=== PATIENT | male | born 1980 ===

== ENCOUNTER 2021-04-12 16:15 | Day surgery (SDC) | payer BC ==
[2021-04-12] MEDS ORDERED: Sodium Chloride 0.9% 1,000 ML IV ONE (16:56)
[2021-04-12] MEDS ORDERED: Sodium Chloride 0.9% 10 ML Syringe FLUSH PRN ×2 (16:56→19:47)
[2021-04-12] MEDS ORDERED: Morphine 4 MG/ML Syringe IVPUSH ONE (16:56)
[2021-04-12] MEDS ORDERED: Sodium Chloride 0.9% 2.5 ML Syringe FLUSH PRN ×2 (16:56→19:47)
--- NOTE | 2021-04-12 17:02 | EDM.PDOC ---
ED HPI GENERAL MEDICAL PROBLEM - General Chief Complaint: General Stated Complaint: DEL, INFLAMMED STOMACH PAIN Time Seen by Provider: 04/12/21 16:30 Source of Information: Reports: Patient History Limitations: Reports: No Limitations - History of Present Illness INITIAL COMMENTS - FREE TEXT/NARRATIVE: HISTORY AND PHYSICAL: History of present illness: Patient is a 40-year-old male who presents to the emergency room with complaints of nausea, vomiting, diarrhea and generalized abdominal pain. Patient reports he has had Crohn's disease for approximately 15 years which is controlled with prescribed medication and recent diet change. He previously had eliminated sugars, carbs and dairy from his diet. He states over the past few weeks he has had birthdays and has not been following his regular diet. He has noticed generalized abdominal pain, nausea, vomiting and mucousy type diarrhea over the past several days. About 1-2 hours prior to arrival he has had an oral P henergan which seems to help with the nausea. Patient denies any fever, chills, headache, change in vision, syncope or near syncope. Denies any chest pain, back pain, shortness of breath or cough. Denies any constipation or dysuria. Has not noted any blood in urine or stool. Patient had been eating and drinking appropriately up until the last 24 hours. Review of systems: As per history of present illness and below otherwise all systems reviewed and negative. Past medical history: As per history of present illness and as reviewed below otherwise noncontributory. Surgical history: As per history of present illness and as reviewed below otherwise noncontributory. Social history: See social history for further information Family history: As per history of present illness and as reviewed below otherwise noncontributory. Physical exam: General: Well developed and well nourished 40 year old male. Alert and orientated x 3. Nontoxic in appearance and in no acute distress. Vital signs are stable and have been reviewed by me. Nursing notes were reviewed. HEENT: Atraumatic, normocephalic, pupils equal and reactive bilaterally, negative for conjunctival pallor or scleral icterus, mucous membranes moist, TMs normal bilaterally, throat clear, neck supple, nontender, trachea midline. No drooling or trismus noted. No meningeal signs. No hot potato voice noted. Lungs: Clear to auscultation bilaterally. No wheezes, rales, or rhonchi. Chest nontender. Normal work of breathing, no accessory muscles used. Heart: S1S2, regular rate and rhythm without overt murmur, gallops, or rubs. No JVD. No peripheral edema Abdomen: Soft, nondistended, generalized abdominal pain in all 4 quadrants. Mild RLQ rebound tenderness. Normoactive bowel sounds. Negative for masses or costovertebral tenderness. Skin: Intact, warm, dry. No lesions or rashes noted. Hematologic: No petechiae or purpra. Mucosa appropriate color and normal nail bed color and refill. Extremities: Atraumatic, moves all extremities per self without difficulty or deficits, negative for cords or calf pain. Neurovascular unremarkable. Neuro: Awake, alert, oriented. Cranial nerves II through XII unremarkable. Cerebellum unremarkable. Motor and sensory unremarkable throughout. Exam nonfocal. Psychiatric: Mood and affect are appropriate. Normal thought process. Answering questions appropriately. Notes: *This patient was seen and evaluated during the 2019 SARS-CoV-2 novel coronavirus pandemic period. Community viral transmission is ongoing at time of this encounter and the emergency department is operating under pandemic response procedures. Patient does have an elevated WBC. CT of abdomen/pelvis shows the appendix measures 1.2 cm in diameter. Minimal periappendiceal fat stranding. Findings are highly concerning for acute appendicitis. I have talked with the patient about today's findings, in addition to providing specific details for plan of care. Reassessment at the time of disposition demonstrates that the patient is in no acute distress. Well managed with the Dilaudid he received. I did talk with Dr. Dudley, surgeon on-call about this patient, she will come and see and evaluate patient. 1915: Dr Dudley here to see patient. Plans to take him to the OR. Diagnostics: CBC, CMP, UA, CT abdomen and pelvis Therapeutics: IV fluid, morphine Impression: History of Crohns Disease Appendicitis Plan: To OR with Dr. Dudley Definitive disposition and diagnosis as appropriate pending reevaluation and review of above. Abdominal Pain Score (Numeric/FACES): 8 - Related Data Allergies Allergy/AdvReac Type Severity Reaction Status Date / Time No Known Allergies Allergy Verified 04/12/21 16:51 Home Meds: Home Meds azaTHIOprine [Azathioprine] mg PO BEDTIME 04/12/21 [History] Past Medical History Other Gastrointestinal History: Chrons - Infectious Disease History Infectious Disease History: Reports: Chicken Pox Social & Family History - Family History Family Medical History: No Pertinent Family History - Tobacco Use Tobacco Use Status *Q: Never Tobacco User - Caffeine Use Caffeine Use: Reports: None - Recreational Drug Use Recreational Drug Use: No ED ROS GENERAL - Review of Systems Review Of Systems: Comprehensive ROS is negative, except as noted in HPI. ED EXAM, GENERAL - Physical Exam Exam: See Below (See dictation) Course - Vital Signs Last Recorded V/S: Last Vital Signs Temp 97.9 F 04/12/21 19:22 Pulse 84 04/12/21 19:22 Resp 18 04/12/21 19:22 BP 118/72 04/12/21 19:22 Pulse Ox 98 04/12/21 19:22 - Orders/Labs/Meds Orders: Active Orders 24 hr Category Date Time Status CORONAVIRUS COVID-19 RAFAEL [MOLEC] Stat Lab 04/12/21 19:17 Received Sodium Chloride 0.9% [Saline Flush] Med 04/12/21 16:56 Active 10 ml FLUSH ASDIRECTED PRN Sodium Chloride 0.9% [Saline Flush] Med 04/12/21 16:56 Active 2.5 ml FLUSH ASDIRECTED PRN Saline Lock Insert [OM.PC] Stat Oth 04/12/21 16:56 Ordered Medication Orders Sodium Chloride (Sodium Chloride 0.9% 10 Ml Syringe) 10 ml FLUSH ASDIRECTED PRN PRN Reason: Keep Vein Open Last Admin: 04/12/21 17:08 Dose: 10 ml Documented by: [id number] Sodium Chloride (Sodium Chloride 0.9% 2.5 Ml Syringe) 2.5 ml FLUSH ASDIRECTED PRN PRN Reason: Keep Vein Open Last Admin: 04/12/21 17:08 Dose: 2.5 ml Documented by: [id number] Labs: Laboratory Tests 04/12/21 04/12/21 04/12/21 Range/Units 17:02 17:02 17:57 WBC 11.24 H (4.0-11.0) K/uL RBC 4.71 (4.50-5.90) M/uL Hgb 15.3 (13.0-17.0) g/dL Hct 43.2 (38.0-50.0) % MCV 91.7 (80.0-98.0) fL MCH 32.5 H (27.0-32.0) pg MCHC 35.4 (31.0-37.0) g/dL RDW Std Deviation 43.6 (28.0-62.0) fl RDW Coeff of Krzysztof 13 (11.0-15.0) % Plt Count 205 (150-400) K/uL MPV 10.30 (7.40-12.00) fL Neut % (Auto) 93.3 H (48.0-80.0) % Lymph % (Auto) 3.6 L (16.0-40.0) % [place] % (Auto) 2.8 (0.0-15.0) % Eos % (Auto) 0.1 (0.0-7.0) % Baso % (Auto) 0.2 (0.0-1.5) % Neut # (Auto) 10.5 H (1.4-5.7) K/uL Lymph # (Auto) 0.4 L (0.6-2.4) K/uL [place] # (Auto) 0.3 (0.0-0.8) K/uL Eos # (Auto) 0.0 (0.0-0.7) K/uL Baso # (Auto) 0.0 (0.0-0.1) K/uL Nucleated RBC % 0.0 /100WBC Nucleated RBCs # 0 K/uL Sodium 141 (136-148) mmol/L Potassium 3.8 (3.5-5.1) mmol/L Chloride 101 (98-107) mmol/L Carbon Dioxide 26.1 (21.0-32.0) mmol/L BUN 13 (7.0-18.0) mg/dL Creatinine 1.0 (0.8-1.3) mg/dL Est Cr Clr Drug Dosing 113.03 mL/min Estimated GFR (MDRD) > 60.0 ml/min Glucose 129 H (74-106) mg/dL Calcium 9.7 (8.5-10.1) mg/dL Total Bilirubin 0.4 (0.2-1.0) mg/dL AST 29 (15-37) IU/L ALT 54 (14-63) IU/L Alkaline Phosphatase 66 (46-116) U/L Total Protein 7.9 (6.4-8.2) g/dL Albumin 4.4 (3.4-5.0) g/dL Globulin 3.5 (2.6-4.0) g/dL Albumin/Globulin Ratio 1.3 (0.9-1.6) Urine Color YELLOW Urine Appearance CLEAR Urine pH 8.5 H (5.0-8.0) Ur Specific [place] 1.020 (1.001-1.035) Urine Protein 100 H (NEGATIVE) mg/dL Urine Glucose (UA) NEGATIVE (NEGATIVE) mg/dL Urine Ketones NEGATIVE (NEGATIVE) mg/dL Urine Occult Blood NEGATIVE (NEGATIVE) Urine Nitrite NEGATIVE (NEGATIVE) Urine Bilirubin NEGATIVE (NEGATIVE) Urine Urobilinogen 0.2 (<2.0) EU/dL Ur Leukocyte Esterase NEGATIVE (NEGATIVE) Urine RBC 0-3 (0-2/HPF) Urine WBC 0-2 (0-5/HPF) Ur Epithelial Cells OCCASIONAL (NONE-FEW) Urine Bacteria RARE (NEGATIVE) Urine Mucus LIGHT (NONE-MOD) Meds: Medications Generic Name Dose Route Start Last Admin Trade Name Yaniv PRN Reason Stop Dose Admin Sodium Chloride 10 ml 04/12/21 16:56 04/12/21 17:08 Sodium Chloride 0.9% 10 Ml Syringe FLUSH 10 ml ASDIRECTED PRN Administration Keep Vein Open Sodium Chloride 2.5 ml 04/12/21 16:56 04/12/21 17:08 Sodium Chloride 0.9% 2.5 Ml Syringe FLUSH 2.5 ml ASDIRECTED PRN Administration Keep Vein Open Discontinued Medications Generic Name Dose Route Start Last Admin Trade Name Yaniv PRN Reason Stop Dose Admin Hydromorphone HCl 1 mg 04/12/21 18:15 04/12/21 18:46 Hydromorphone 1 Mg/Ml Syringe IVPUSH 04/12/21 18:16 1 mg ONETIME ONE Administration Sodium Chloride 1,000 mls @ 999 mls/hr 04/12/21 16:56 04/12/21 17:08 Normal Saline IV 04/12/21 17:56 999 mls/hr STAT ONE Administration Iopamidol 100 ml 04/12/21 18:24 04/12/21 18:25 Iopamidol 755 Mg/Ml 500 Ml Multipack Bottle IVPUSH 04/12/21 18:25 100 ml ONETIME STA Administration Morphine Sulfate 4 mg 04/12/21 16:56 04/12/21 17:08 Morphine 4 Mg/Ml Syringe IVPUSH 04/12/21 16:57 4 mg ONETIME ONE Administration Departure - Departure Time of Disposition: 19:36 Disposition: Still A Patient 30 Clinical Impression: Appendicitis Qualifiers: Appendicitis type: acute appendicitis Acute appendicitis type: with localized peritonitis Appendicitis gangrene presence: without gangrene Appendicitis perforation presence: without perforation Appendicitis abscess presence: without abscess Qualified Code(s): K35.30 - Acute appendicitis with localized peritonitis, without perforation or gangrene - Discharge Information Referrals: Christ Guadalupe MD [Primary Care Provider] - Forms: ED Department Discharge Sepsis Event Note (ED) - Evaluation Sepsis Screening Result: No Definite Risk - Focused Exam Vital Signs: Vital Signs Temp Pulse Resp BP Pulse Ox 04/12/21 19:22 97.9 F 84 18 118/72 98 04/12/21 18:47 98.2 F 78 20 128/87 98 04/12/21 17:55 98.4 F 84 18 128/72 98 04/12/21 16:44 98.9 F 88 18 149/94 H 97 - My Orders Last 24 Hours: My Active Orders 04/12/21 16:56 Sodium Chloride 0.9% [Saline Flush] 10 ml FLUSH ASDIRECTED PRN Sodium Chloride 0.9% [Saline Flush] 2.5 ml FLUSH ASDIRECTED PRN Saline Lock Insert [OM.PC] Stat 04/12/21 19:17 CORONAVIRUS COVID-19 RAFAEL [MOLEC] Stat - Assessment/Plan Last 24 Hours: My Active Orders 04/12/21 16:56 Sodium Chloride 0.9% [Saline Flush] 10 ml FLUSH ASDIRECTED PRN Sodium Chloride 0.9% [Saline Flush] 2.5 ml FLUSH ASDIRECTED PRN Saline Lock Insert [OM.PC] Stat 04/12/21 19:17 CORONAVIRUS COVID-19 RAFAEL [MOLEC] Stat
[2021-04-12 17:41] LABS: BLOOD UREA NITROGEN,BUN 13 mg/dL (7.0-18.0); CARBON DIOXIDE,CO2 26.1 mmol/L (21.0-32.0); CHLORIDE,CL 101 mmol/L (98-107); GLUCOSE RANDOM 129 mg/dL (74-106); POTASSIUM,K 3.8 mmol/L (3.5-5.1); SODIUM,NA 141 mmol/L (136-148)
[2021-04-12] MEDS ORDERED: HYDROmorphone 1 MG/ML Syringe IVPUSH ONE (18:15)
[2021-04-12] MEDS ORDERED: Iopamidol 755 MG/ML 500 ML Multipack Bottle IVPUSH STA (18:24)
--- NOTE | 2021-04-12 19:06 | CT ---
For Patients: As a result of the Century Cures Act, medical imaging exams and procedure reports are released immediately into your electronic medical record. You may view this report before your referring provider. If you have questions, please contact your health care provider. INDICATION: Abdominal pain, nausea, vomiting, diarrhea, history of Crohn`s disease, leukocytosis TECHNIQUE: CT abdomen and pelvis acquired with 100 cc Isovue 370 IV contrast. COMPARISON: December 16, 2016 FINDINGS: Lower chest: Unremarkable. Liver: Unremarkable. Spleen: Unremarkable. Pancreas: Unremarkable. Gallbladder and bile ducts: Unremarkable. Adrenal glands: Unremarkable. Kidneys: Unremarkable. GI tract: The appendix measures 1.2 cm in diameter. Minimal periappendiceal fat stranding. No extraluminal air or abscess. No bowel wall thickening. Vascular structures: Unremarkable. Lymph nodes: Unremarkable. Pelvic Organs: Unremarkable. Bones: Unremarkable for age. IMPRESSION: The appendix measures 1.2 cm in diameter. Minimal periappendiceal fat stranding. Findings are highly concerning for acute appendicitis. Findings discussed with Dr. Ash at 7:02 p.m. on April 12, 2021. Please note that all CT scans at this facility use dose modulation, iterative reconstruction, and/or weight-based dosing when appropriate to reduce radiation dose to as low as reasonably achievable. Dictated by Bettina Velez MD @ 04/12/2021 7:05:[address] Bettina Velez @ Apr 12 2021 7:05PM
[2021-04-12] MEDS ORDERED: Piperacillin/Tazobactam 3.375 GM in Sodium Chloride 0.9% 50 ML IV ONE (19:37)
--- NOTE | 2021-04-12 19:41 | PCM.HP.2 ---
H&P History of Present Illness - General Date of Service: 04/12/21 Admit Problem/Dx: Appendicitis Source of Information: Patient History Limitations: Reports: No Limitations - History of Present Illness Initial Comments - Free Text/Narative: Patient is a 40 year old male who presents with abdominal pain. His past medical history is significant for very well controlled Crohn's Disease. He has never had surgery for this. He had his last colonoscopy 6 months ago and his GI physician stated that there was no evidence of disease. He celebrated his daughters birthday this weekend with pizza and cake. He developed sharp abdominal pain this afternoon and felt that this could be a flare due to his dietary indiscretion. He developed chills and had nausea and vomiting that he doesn't get with flares so his brought him to the ER. His vitals were stable. His WBC was slightly elevated at 11K with a left shift. He had an abdominal CT scan that showed a dilated appendix at 1.2cm in diameter. There was no bowel wall thickening. The findings were concerning for acute appendicitis. Abdominal Pain Score (Numeric/FACES): 8 - Related Data Allergies/Adverse Reactions: Allergies Allergy/AdvReac Type Severity Reaction Status Date / Time No Known Allergies Allergy Verified 04/12/21 16:51 Home Medications: Home Meds azaTHIOprine [Azathioprine] mg PO BEDTIME 04/12/21 [History] Past Medical History Other Gastrointestinal History: Crohn's Disease - Infectious Disease History Infectious Disease History: Reports: Chicken Pox Social & Family History - Family History Family Medical History: No Pertinent Family History - Tobacco Use Tobacco Use Status *Q: Never Tobacco User - Caffeine Use Caffeine Use: Reports: None - Recreational Drug Use Recreational Drug Use: No H&P Review of Systems - Review of Systems: Review Of Systems: Comprehensive ROS is negative, except as noted in HPI. Exam - Exam Exam: See Below - Vital Signs Vital Signs: Last Vital Signs Temp 36.6 C 04/12/21 19:22 Pulse 84 04/12/21 19:22 Resp 18 04/12/21 19:22 BP 118/72 04/12/21 19:22 Pulse Ox 98 04/12/21 19:22 Weight: 122.47 kg - Exam General: Alert, Oriented, Cooperative HEENT: Conjunctiva Clear, Mucosa Moist & [place], Posterior Pharynx Clear Lungs: Clear to Auscultation, Normal Respiratory Effort Cardiovascular: Regular Rate, Regular Rhythm GI/Abdominal Exam: Soft, No Distention, Rebound (RLQ), Tender (RLQ). No: Guarding, Rigid - Patient Data Lab Results Last 24 hrs: Laboratory Results - last 24 hr 04/12/21 04/12/21 04/12/21 Range/Units 17:02 17:02 17:57 WBC 11.24 H (4.0-11.0) K/uL RBC 4.71 (4.50-5.90) M/uL Hgb 15.3 (13.0-17.0) g/dL Hct 43.2 (38.0-50.0) % MCV 91.7 (80.0-98.0) fL MCH 32.5 H (27.0-32.0) pg MCHC 35.4 (31.0-37.0) g/dL RDW Std Deviation 43.6 (28.0-62.0) fl RDW Coeff of Krzysztof 13 (11.0-15.0) % Plt Count 205 (150-400) K/uL MPV 10.30 (7.40-12.00) fL Neut % (Auto) 93.3 H (48.0-80.0) % Lymph % (Auto) 3.6 L (16.0-40.0) % [place] % (Auto) 2.8 (0.0-15.0) % Eos % (Auto) 0.1 (0.0-7.0) % Baso % (Auto) 0.2 (0.0-1.5) % Neut # (Auto) 10.5 H (1.4-5.7) K/uL Lymph # (Auto) 0.4 L (0.6-2.4) K/uL [place] # (Auto) 0.3 (0.0-0.8) K/uL Eos # (Auto) 0.0 (0.0-0.7) K/uL Baso # (Auto) 0.0 (0.0-0.1) K/uL Nucleated RBC % 0.0 /100WBC Nucleated RBCs # 0 K/uL Sodium 141 (136-148) mmol/L Potassium 3.8 (3.5-5.1) mmol/L Chloride 101 (98-107) mmol/L Carbon Dioxide 26.1 (21.0-32.0) mmol/L BUN 13 (7.0-18.0) mg/dL Creatinine 1.0 (0.8-1.3) mg/dL Est Cr Clr Drug Dosing 113.03 mL/min Estimated GFR (MDRD) > 60.0 ml/min Glucose 129 H (74-106) mg/dL Calcium 9.7 (8.5-10.1) mg/dL Total Bilirubin 0.4 (0.2-1.0) mg/dL AST 29 (15-37) IU/L ALT 54 (14-63) IU/L Alkaline Phosphatase 66 (46-116) U/L Total Protein 7.9 (6.4-8.2) g/dL Albumin 4.4 (3.4-5.0) g/dL Globulin 3.5 (2.6-4.0) g/dL Albumin/Globulin Ratio 1.3 (0.9-1.6) Urine Color YELLOW Urine Appearance CLEAR Urine pH 8.5 H (5.0-8.0) Ur Specific [place] 1.020 (1.001-1.035) Urine Protein 100 H (NEGATIVE) mg/dL Urine Glucose (UA) NEGATIVE (NEGATIVE) mg/dL Urine Ketones NEGATIVE (NEGATIVE) mg/dL Urine Occult Blood NEGATIVE (NEGATIVE) Urine Nitrite NEGATIVE (NEGATIVE) Urine Bilirubin NEGATIVE (NEGATIVE) Urine Urobilinogen 0.2 (<2.0) EU/dL Ur Leukocyte Esterase NEGATIVE (NEGATIVE) Urine RBC 0-3 (0-2/HPF) Urine WBC 0-2 (0-5/HPF) Ur Epithelial Cells OCCASIONAL (NONE-FEW) Urine Bacteria RARE (NEGATIVE) Urine Mucus LIGHT (NONE-MOD) Result Diagrams: 04/12/21 17:02 04/12/21 17:02 Sepsis Event Note - Evaluation Sepsis Screening Result: No Definite Risk - Focused Exam Vital Signs: Vital Signs Temp Pulse Resp BP Pulse Ox 04/12/21 19:22 36.6 C 84 18 118/72 98 04/12/21 18:47 36.8 C 78 20 128/87 98 04/12/21 17:55 36.9 C 84 18 128/72 98 04/12/21 16:44 37.2 C 88 18 149/94 H 97 Problem List Initiated/Reviewed/Updated: Yes Orders Last 24hrs: Active Orders 24 hr Category Date Time Status CORONAVIRUS COVID-19 RAFAEL [MOLEC] Stat Lab 04/12/21 19:17 Received Sodium Chloride 0.9% [Saline Flush] Med 04/12/21 16:56 Active 10 ml FLUSH ASDIRECTED PRN Sodium Chloride 0.9% [Saline Flush] Med 04/12/21 16:56 Active 2.5 ml FLUSH ASDIRECTED PRN Saline Lock Insert [OM.PC] Stat Oth 04/12/21 16:56 Ordered Medication Orders Sodium Chloride (Sodium Chloride 0.9% 10 Ml Syringe) 10 ml FLUSH ASDIRECTED PRN PRN Reason: Keep Vein Open Last Admin: 04/12/21 17:08 Dose: 10 ml Documented by: [email or web address] Sodium Chloride (Sodium Chloride 0.9% 2.5 Ml Syringe) 2.5 ml FLUSH ASDIRECTED PRN PRN Reason: Keep Vein Open Last Admin: 04/12/21 17:08 Dose: 2.5 ml Documented by: [email or web address] Assessment/Plan Comment:: The patient and I discussed the pathophysiology of appendicitis. There is a chance this could be a Crohn's flare, however his clinical story and leukocytosis with left shift suggest this is appendicitis. We discussed the option of surgical vs non-surgical management. He and his both agreed they would prefer to proceed with an appendectomy. We discussed the risks of possible ileo-cecectomy. We discussed the laparoscopic appendectomy procedure. Should I be unable to perform this safely I will convert to open. We discussed the post operative course and the risks of surgery including bleeding, wound healing issues, infection or damage to surrounding structures. He verbalized understand ing and wishes to proceed.
[2021-04-12] MEDS ORDERED: Sodium Chloride 0.9% 10 ML SDV IV PRN (19:47)
[2021-04-12] MEDS ORDERED: HYDROmorphone 1 MG/ML Syringe IVPUSH PRN (19:49)
[2021-04-12] MEDS ORDERED: Lactated Ringers 1,000 ML IV SCH (20:00)
[2021-04-12] MEDS ORDERED: Famotidine 20 MG/2 ML SDV ONE (20:37)
[2021-04-12] MEDS ORDERED: fentaNYL 250 MCG/5 ML SDV ONE (20:42)
[2021-04-12] MEDS ORDERED: Midazolam 1 MG/ML 2 ML SDV ONE (20:42)
[2021-04-12] MEDS ORDERED: Propofol 200 MG/20 ML SDV ONE (20:42)
[2021-04-12] MEDS ORDERED: Ondansetron 4 MG/2 ML SDV ONE (20:44)
[2021-04-12] MEDS ORDERED: Ketorolac 30 MG/ML SDV ONE (20:44)
[2021-04-12] MEDS ORDERED: Rocuronium Bromide 50 MG/5 ML Syringe ONE ×2 (20:44→21:42)
[2021-04-12] MEDS ORDERED: Glycopyrrolate 0.2 MG/ML SDV ONE (20:44)
[2021-04-12] MEDS ORDERED: Lidocaine 2% 5 ML SDV ONE (20:44)
[2021-04-12] MEDS ORDERED: Sugammadex Sodium 200 MG/2 ML VIAL ONE ×2 (20:44→22:44)
[2021-04-12] MEDS ORDERED: Acetaminophen 1,000 MG in Premix Bag 1 BAG IV PRN (20:50)
--- NOTE | 2021-04-12 20:50 | PCM.PREANE ---
Preanesthetic Assessment - Anesthesia/Transfusion/Family Hx Anesthesia History: Prior Anesthesia Without Reaction Family History of Anesthesia Reaction: No - Physical Assessment NPO Status Date: 04/12/21 NPO Status Time: 11:00 Vital Signs: Last Vital Signs Temp 36.7 C 04/12/21 20:20 Pulse 71 04/12/21 20:20 Resp 18 04/12/21 20:20 BP 137/94 H 04/12/21 20:20 Pulse Ox 98 04/12/21 20:20 Height: 1.88 m Weight: 122.47 kg ASA Class: 2E - Lab Values: Laboratory Last Values WBC 11.24 K/uL (4.0-11.0) H 04/12/21 17:02 RBC 4.71 M/uL (4.50-5.90) 04/12/21 17:02 Hgb 15.3 g/dL (13.0-17.0) 04/12/21 17:02 Hct 43.2 % (38.0-50.0) 04/12/21 17:02 MCV 91.7 fL (80.0-98.0) 04/12/21 17:02 MCH 32.5 pg (27.0-32.0) H 04/12/21 17:02 MCHC 35.4 g/dL (31.0-37.0) 04/12/21 17:02 RDW Std Deviation 43.6 fl (28.0-62.0) 04/12/21 17:02 RDW Coeff of Krzysztof 13 % (11.0-15.0) 04/12/21 17:02 Plt Count 205 K/uL (150-400) 04/12/21 17:02 MPV 10.30 fL (7.40-12.00) 04/12/21 17:02 Neut % (Auto) 93.3 % (48.0-80.0) H 04/12/21 17:02 Lymph % (Auto) 3.6 % (16.0-40.0) L 04/12/21 17:02 [place] % (Auto) 2.8 % (0.0-15.0) 04/12/21 17:02 Eos % (Auto) 0.1 % (0.0-7.0) 04/12/21 17:02 Baso % (Auto) 0.2 % (0.0-1.5) 04/12/21 17:02 Neut # (Auto) 10.5 K/uL (1.4-5.7) H 04/12/21 17:02 Lymph # (Auto) 0.4 K/uL (0.6-2.4) L 04/12/21 17:02 [place] # (Auto) 0.3 K/uL (0.0-0.8) 04/12/21 17:02 Eos # (Auto) 0.0 K/uL (0.0-0.7) 04/12/21 17:02 Baso # (Auto) 0.0 K/uL (0.0-0.1) 04/12/21 17:02 Nucleated RBC % 0.0 /100WBC 04/12/21 17:02 Nucleated RBCs # 0 K/uL 04/12/21 17:02 Sodium 141 mmol/L (136-148) 04/12/21 17:02 Potassium 3.8 mmol/L (3.5-5.1) 04/12/21 17:02 Chloride 101 mmol/L (98-107) 04/12/21 17:02 Carbon Dioxide 26.1 mmol/L (21.0-32.0) 04/12/21 17:02 BUN 13 mg/dL (7.0-18.0) 04/12/21 17:02 Creatinine 1.0 mg/dL (0.8-1.3) 04/12/21 17:02 Est Cr Clr Drug Dosing 113.03 mL/min 04/12/21 17:02 Estimated GFR (MDRD) > 60.0 ml/min 04/12/21 17:02 Glucose 129 mg/dL (74-106) H 04/12/21 17:02 Calcium 9.7 mg/dL (8.5-10.1) 04/12/21 17:02 Total Bilirubin 0.4 mg/dL (0.2-1.0) 04/12/21 17:02 AST 29 IU/L (15-37) 04/12/21 17:02 ALT 54 IU/L (14-63) 04/12/21 17:02 Alkaline Phosphatase 66 U/L (46-116) 04/12/21 17:02 Total Protein 7.9 g/dL (6.4-8.2) 04/12/21 17:02 Albumin 4.4 g/dL (3.4-5.0) 04/12/21 17:02 Globulin 3.5 g/dL (2.6-4.0) 04/12/21 17:02 Albumin/Globulin Ratio 1.3 (0.9-1.6) 04/12/21 17:02 Urine Color YELLOW 04/12/21 17:57 Urine Appearance CLEAR 04/12/21 17:57 Urine pH 8.5 (5.0-8.0) H 04/12/21 17:57 Ur Specific [place] 1.020 (1.001-1.035) 04/12/21 17:57 Urine Protein 100 mg/dL (NEGATIVE) H 04/12/21 17:57 Urine Glucose (UA) NEGATIVE mg/dL (NEGATIVE) 04/12/21 17:57 Urine Ketones NEGATIVE mg/dL (NEGATIVE) 04/12/21 17:57 Urine Occult Blood NEGATIVE (NEGATIVE) 04/12/21 17:57 Urine Nitrite NEGATIVE (NEGATIVE) 04/12/21 17:57 Urine Bilirubin NEGATIVE (NEGATIVE) 04/12/21 17:57 Urine Urobilinogen 0.2 EU/dL (<2.0) 04/12/21 17:57 Ur Leukocyte Esterase NEGATIVE (NEGATIVE) 04/12/21 17:57 Urine RBC 0-3 (0-2/HPF) 04/12/21 17:57 Urine WBC 0-2 (0-5/HPF) 04/12/21 17:57 Ur Epithelial Cells OCCASIONAL (NONE-FEW) 04/12/21 17:57 Urine Bacteria RARE (NEGATIVE) 04/12/21 17:57 Urine Mucus LIGHT (NONE-MOD) 04/12/21 17:57 SARS-CoV-2 RNA (RAFAEL) NEGATIVE (NEGATIVE) 04/12/21 19:17 - Allergies Allergies/Adverse Reactions: Allergies Allergy/AdvReac Type Severity Reaction Status Date / Time No Known Allergies Allergy Verified 04/12/21 16:51 - Acknowledgements Anesthesia Type Planned: General Anesthesia Pt an Appropriate Candidate for the Planned Anesthesia: Yes Alternatives and Risks of Anesthesia Discussed w Pt/Guardian: Yes Pt/Guardian Understands and Agrees with Anesthesia Plan: Yes PreAnesthesia Questionnaire Other Gastrointestinal History: Crohn's Disease - Infectious Disease History Infectious Disease History: Reports: Chicken Pox - SUBSTANCE USE Tobacco Use Status *Q: Never Tobacco User Recreational Drug Use History: No - HOME MEDS Home Medications: Home Meds azaTHIOprine [Azathioprine] mg PO BEDTIME 04/12/21 [History] - CURRENT (IN HOUSE) MEDS Current Meds: Current Medications Hydromorphone HCl (Hydromorphone 1 Mg/Ml Syringe) 0.5 mg IVPUSH Q1H PRN PRN Reason: Pain Lactated Ringer's (Ringers, Lactated) 1,000 mls @ 125 mls/hr IV ASDIRECTED RICARDO Sodium Chloride (Sodium Chloride 0.9% 10 Ml Syringe) 10 ml FLUSH ASDIRECTED PRN PRN Reason: Keep Vein Open Last Admin: 04/12/21 17:08 Dose: 10 ml Documented by: Sodium Chloride (Sodium Chloride 0.9% 2.5 Ml Syringe) 2.5 ml FLUSH ASDIRECTED PRN PRN Reason: Keep Vein Open Last Admin: 04/12/21 17:08 Dose: 2.5 ml Documented by: Sodium Chloride (Sodium Chloride 0.9% 10 Ml Syringe) 10 ml FLUSH ASDIRECTED PRN PRN Reason: Keep Vein Open Sodium Chloride (Sodium Chloride 0.9% 2.5 Ml Syringe) 2.5 ml FLUSH ASDIRECTED PRN PRN Reason: Keep Vein Open Sodium Chloride (Sodium Chloride 0.9% 10 Ml Sdv) 10 ml IV ASDIRECTED PRN PRN Reason: IV Use Discontinued Medications Famotidine (Famotidine 20 Mg/2 Ml Sdv) Confirm Administered Dose 20 mg .ROUTE .STK-MED ONE Stop: 04/12/21 20:38 Fentanyl (Fentanyl 250 Mcg/5 Ml Sdv) Confirm Administered Dose 250 mcg .ROUTE .STK-MED ONE Stop: 04/12/21 20:43 Glycopyrrolate (Glycopyrrolate 0.2 Mg/Ml Sdv) Confirm Administered Dose 0.2 mg .ROUTE .STK-MED ONE Stop: 04/12/21 20:45 Hydromorphone HCl (Hydromorphone 1 Mg/Ml Syringe) 1 mg IVPUSH ONETIME ONE Stop: 04/12/21 18:16 Last Admin: 04/12/21 18:46 Dose: 1 mg Documented by: Sodium Chloride (Normal Saline) 1,000 mls @ 999 mls/hr IV STAT ONE Stop: 04/12/21 17:56 Last Admin: 04/12/21 17:08 Dose: 999 mls/hr Documented by: Piperacillin Sod/Tazobactam (Sod 3.375 gm/ Sodium Chloride) 50 mls @ 100 mls/hr IV ONETIME ONE Stop: 04/12/21 20:06 Iopamidol (Iopamidol 755 Mg/Ml 500 Ml Multipack Bottle) 100 ml IVPUSH ONETIME STA Stop: 04/12/21 18:25 Last Admin: 04/12/21 18:25 Dose: 100 ml Documented by: Ketorolac Tromethamine (Ketorolac 30 Mg/Ml Sdv) Confirm Administered Dose 30 mg .ROUTE .STK-MED ONE Stop: 04/12/21 20:45 Lidocaine (Lidocaine 2% 5 Ml Sdv) Confirm Administered Dose 5 ml .ROUTE .STK-MED ONE Stop: 04/12/21 20:45 Midazolam HCl (Midazolam 1 Mg/Ml 2 Ml Sdv) Confirm Administered Dose 2 mg .ROUTE .STK-MED ONE Stop: 04/12/21 20:43 Morphine Sulfate (Morphine 4 Mg/Ml Syringe) 4 mg IVPUSH ONETIME ONE Stop: 04/12/21 16:57 Last Admin: 04/12/21 17:08 Dose: 4 mg Documented by: Ondansetron HCl (Ondansetron 4 Mg/2 Ml Sdv) Confirm Administered Dose 4 mg .ROUTE .STK-MED ONE Stop: 04/12/21 20:45 Propofol (Propofol 200 Mg/20 Ml Sdv) Confirm Administered Dose 200 mg .ROUTE .STK-MED ONE Stop: 04/12/21 20:43 Rocuronium [place] (Rocuronium [place] 50 Mg/5 Ml Syringe) Confirm Administered Dose 50 mg .ROUTE .STK-MED ONE Stop: 04/12/21 20:45 Sugammadex Sodium (Sugammadex Sodium 200 Mg/2 Ml Vial) Confirm Administered Dose 200 mg .ROUTE .STK-MED ONE Stop: 04/12/21 20:45
[2021-04-12] MEDS ORDERED: Bupivacaine 0.5% 30 ML SDV ONE (20:51)
[2021-04-12] MEDS ORDERED: Octyl 2-Cyanoacrylate 1 Tube ONE (20:51)
[2021-04-12] MEDS ORDERED: HYDROmorphone 2 MG/ML Syringe ONE ×2 (21:41→22:10)
[2021-04-12] MEDS ORDERED: Sodium Chloride 0.9% 20 ML ONE (23:33)
[2021-04-12] MEDS ORDERED: cefOXitin 1 GM Vial ONE (23:33)
--- NOTE | 2021-04-12 23:41 | PCM.OPNOTE ---
- General Post-Op/Procedure Note Date of Surgery/Procedure: 04/12/21 Operative Procedure(s): Laparoscopic appendectomy and lysis of adhesions Findings: Dense adhesions of an enlarged and inflamed appendix to the retroperitoneum and overlying terminal ileum. No evidence of perforation Pre Op Diagnosis: Acute appendicitis Post-Op Diagnosis: Acute appendicitis, intra-abdominal adhesions Anesthesia Technique: General ET Tube Primary Surgeon: Veronica Dudley Output, Urine Amount: 100 EBL in mLs: 10 Condition: Stable Free Text/Narrative:: Intake & Output 04/12/21 04/12/21 04/13/21 14:59 22:59 06:59 Output Total 125 Balance -125
[2021-04-12] MEDS ORDERED: Polyethylene Glycol 3350 Powder 17 GM Packet PO PRN (23:59)
[2021-04-12] MEDS ORDERED: Ondansetron 4 MG/2 ML SDV IVPUSH PRN (23:59)
[2021-04-12] MEDS ORDERED: diphenhydrAMINE 50 MG/ML SDV IVPUSH PRN (23:59)
[2021-04-13] MEDS: fentaNYL 100 MCG/2 ML SDV IVPUSH PRN ×2 (00:15→00:21)
--- NOTE | 2021-04-13 00:50 | PCM.POSTAN ---
POST ANESTHESIA ASSESSMENT - MENTAL STATUS Mental Status: Alert - VITAL SIGNS Vital Signs: Last Vital Signs Temp 37.2 C 04/12/21 23:51 Pulse 110 H 04/13/21 00:31 Resp 11 L 04/13/21 00:31 BP 142/97 H 04/13/21 00:31 Pulse Ox 100 04/13/21 00:31 - RESPIRATORY Respiratory Status: Respiratory Rate WNL - CARDIOVASCULAR CV Status: Pulse Rate WNL - GASTROINTESTINAL GI Status: No Symptoms - POST OP HYDRATION Hydration Status: Adequate & Stable
[2021-04-13] MEDS: Piperacillin/Tazobactam 3.375 GM in Sodium Chloride 0.9% 50 ML IV SCH ×3 (01:21→15:28)
--- NOTE | 2021-04-13 06:59 | PCM48HPAN ---
Post Anesthesia Note - EVALUATION WITHIN 48HRS OF ANESTHETIC Vital Signs in Normal Range: Yes Patient Participated in Evaluation: Yes Respiratory Function Stable: Yes Airway Patent: Yes Cardiovascular Function Stable: Yes Hydration Status Stable: Yes Pain Control Satisfactory: Yes Nausea and Vomiting Control Satisfactory: Yes Mental Status Recovered: Yes Vital Signs: Last Vital Signs Temp 36.9 C 04/13/21 04:40 Pulse 85 04/13/21 04:40 Resp 16 04/13/21 04:40 BP 134/75 04/13/21 04:40 Pulse Ox 95 04/13/21 04:40
[2021-04-13] MEDS: Acetaminophen/oxyCODONE 325-5 MG Tab PO PRN ×2 (07:28→12:10)
[2021-04-13] MEDS ORDERED: Calcium Carbonate 500 MG Tab.Chew PO PRN (11:47)
[2021-04-13 12:55] VITALS: BP 105/72; PULSE 78
--- NOTE | 2021-04-13 16:30 | PCM.SURGPN ---
- General Info Date of Service: 04/13/21 Date of Surgery/Procedure: 04/12/21 POD#: 1 Functional Status: Reports: Pain Controlled, Tolerating Diet, Ambulating, Urinating. Denies: New Symptoms - Review of Systems General: Reports: No Symptoms HEENT: Reports: No Symptoms Pulmonary: Reports: No Symptoms Cardiovascular: Reports: No Symptoms Gastrointestinal: Reports: Abdominal Pain (at 12 mm trocar sites ) - Patient Data Vitals - Most Recent: Last Vital Signs Temp 36.3 C 04/13/21 12:00 Pulse 78 04/13/21 12:00 Resp 17 04/13/21 12:00 BP 105/72 04/13/21 12:00 Pulse Ox 94 L 04/13/21 12:00 Weight - Most Recent: 122.47 kg I&O - Last 24 Hours: Intake & Output 04/13/21 04/13/21 04/13/21 06:59 14:59 22:59 Intake Total 3157 1740 Output Total 225 Balance 2932 1740 Lab Results Last 24 Hrs: Laboratory Results - last 24 hr 04/12/21 04/12/21 04/12/21 Range/Units 17:02 17:02 17:57 WBC 11.24 H (4.0-11.0) K/uL RBC 4.71 (4.50-5.90) M/uL Hgb 15.3 (13.0-17.0) g/dL Hct 43.2 (38.0-50.0) % MCV 91.7 (80.0-98.0) fL MCH 32.5 H (27.0-32.0) pg MCHC 35.4 (31.0-37.0) g/dL RDW Std Deviation 43.6 (28.0-62.0) fl RDW Coeff of Krzysztof 13 (11.0-15.0) % Plt Count 205 (150-400) K/uL MPV 10.30 (7.40-12.00) fL Neut % (Auto) 93.3 H (48.0-80.0) % Lymph % (Auto) 3.6 L (16.0-40.0) % [place] % (Auto) 2.8 (0.0-15.0) % Eos % (Auto) 0.1 (0.0-7.0) % Baso % (Auto) 0.2 (0.0-1.5) % Neut # (Auto) 10.5 H (1.4-5.7) K/uL Lymph # (Auto) 0.4 L (0.6-2.4) K/uL [place] # (Auto) 0.3 (0.0-0.8) K/uL Eos # (Auto) 0.0 (0.0-0.7) K/uL Baso # (Auto) 0.0 (0.0-0.1) K/uL Nucleated RBC % 0.0 /100WBC Nucleated RBCs # 0 K/uL Sodium 141 (136-148) mmol/L Potassium 3.8 (3.5-5.1) mmol/L Chloride 101 (98-107) mmol/L Carbon Dioxide 26.1 (21.0-32.0) mmol/L BUN 13 (7.0-18.0) mg/dL Creatinine 1.0 (0.8-1.3) mg/dL Est Cr Clr Drug Dosing 113.03 mL/min Estimated GFR (MDRD) > 60.0 ml/min Glucose 129 H (74-106) mg/dL Calcium 9.7 (8.5-10.1) mg/dL Total Bilirubin 0.4 (0.2-1.0) mg/dL AST 29 (15-37) IU/L ALT 54 (14-63) IU/L Alkaline Phosphatase 66 (46-116) U/L Total Protein 7.9 (6.4-8.2) g/dL Albumin 4.4 (3.4-5.0) g/dL Globulin 3.5 (2.6-4.0) g/dL Albumin/Globulin Ratio 1.3 (0.9-1.6) Urine Color YELLOW Urine Appearance CLEAR Urine pH 8.5 H (5.0-8.0) Ur Specific [place] 1.020 (1.001-1.035) Urine Protein 100 H (NEGATIVE) mg/dL Urine Glucose (UA) NEGATIVE (NEGATIVE) mg/dL Urine Ketones NEGATIVE (NEGATIVE) mg/dL Urine Occult Blood NEGATIVE (NEGATIVE) Urine Nitrite NEGATIVE (NEGATIVE) Urine Bilirubin NEGATIVE (NEGATIVE) Urine Urobilinogen 0.2 (<2.0) EU/dL Ur Leukocyte Esterase NEGATIVE (NEGATIVE) Urine RBC 0-3 (0-2/HPF) Urine WBC 0-2 (0-5/HPF) Ur Epithelial Cells OCCASIONAL (NONE-FEW) Urine Bacteria RARE (NEGATIVE) Urine Mucus LIGHT (NONE-MOD) SARS-CoV-2 RNA (RAFAEL) (NEGATIVE) 04/12/21 Range/Units 19:17 WBC (4.0-11.0) K/uL RBC (4.50-5.90) M/uL Hgb (13.0-17.0) g/dL Hct (38.0-50.0) % MCV (80.0-98.0) fL MCH (27.0-32.0) pg MCHC (31.0-37.0) g/dL RDW Std Deviation (28.0-62.0) fl RDW Coeff of Krzysztof (11.0-15.0) % Plt Count (150-400) K/uL MPV (7.40-12.00) fL Neut % (Auto) (48.0-80.0) % Lymph % (Auto) (16.0-40.0) % [place] % (Auto) (0.0-15.0) % Eos % (Auto) (0.0-7.0) % Baso % (Auto) (0.0-1.5) % Neut # (Auto) (1.4-5.7) K/uL Lymph # (Auto) (0.6-2.4) K/uL [place] # (Auto) (0.0-0.8) K/uL Eos # (Auto) (0.0-0.7) K/uL Baso # (Auto) (0.0-0.1) K/uL Nucleated RBC % /100WBC Nucleated RBCs # K/uL Sodium (136-148) mmol/L Potassium (3.5-5.1) mmol/L Chloride (98-107) mmol/L Carbon Dioxide (21.0-32.0) mmol/L BUN (7.0-18.0) mg/dL Creatinine (0.8-1.3) mg/dL Est Cr Clr Drug Dosing mL/min Estimated GFR (MDRD) ml/min Glucose (74-106) mg/dL Calcium (8.5-10.1) mg/dL Total Bilirubin (0.2-1.0) mg/dL AST (15-37) IU/L ALT (14-63) IU/L Alkaline Phosphatase (46-116) U/L Total Protein (6.4-8.2) g/dL Albumin (3.4-5.0) g/dL Globulin (2.6-4.0) g/dL Albumin/Globulin Ratio (0.9-1.6) Urine Color Urine Appearance Urine pH (5.0-8.0) Ur Specific [place] (1.001-1.035) Urine Protein (NEGATIVE) mg/dL Urine Glucose (UA) (NEGATIVE) mg/dL Urine Ketones (NEGATIVE) mg/dL Urine Occult Blood (NEGATIVE) Urine Nitrite (NEGATIVE) Urine Bilirubin (NEGATIVE) Urine Urobilinogen (<2.0) EU/dL Ur Leukocyte Esterase (NEGATIVE) Urine RBC (0-2/HPF) Urine WBC (0-5/HPF) Ur Epithelial Cells (NONE-FEW) Urine Bacteria (NEGATIVE) Urine Mucus (NONE-MOD) SARS-CoV-2 RNA (RAFAEL) NEGATIVE (NEGATIVE) Med Orders - Current: Current Medications Discontinued Medications Bupivacaine HCl (Bupivacaine 0.5% 30 Ml Sdv) Confirm Administered Dose 30 ml .ROUTE .STK-MED ONE Stop: 04/12/21 20:52 Calcium Carbonate/Glycine (Calcium Carbonate 500 Mg Tab.Chew) 1,000 mg PO Q2HR PRN PRN Reason: Indigestion Last Admin: 04/13/21 12:52 Dose: 1,000 mg Documented by: Cefoxitin Sodium (Cefoxitin 1 Gm Vial) Confirm Administered Dose 2 gm .ROUTE .STK-MED ONE Stop: 04/12/21 23:34 Diphenhydramine HCl (Diphenhydramine 50 Mg/Ml Sdv) 50 mg IVPUSH Q4H PRN PRN Reason: Itching Famotidine (Famotidine 20 Mg/2 Ml Sdv) Confirm Administered Dose 20 mg .ROUTE .STK-MED ONE Stop: 04/12/21 20:38 Fentanyl (Fentanyl 250 Mcg/5 Ml Sdv) Confirm Administered Dose 250 mcg .ROUTE .STK-MED ONE Stop: 04/12/21 20:43 Fentanyl (Fentanyl 100 Mcg/2 Ml Sdv) 50 mcg IVPUSH Q5M PRN PRN Reason: Pain Last Admin: 04/13/21 00:21 Dose: 50 mcg Documented by: Glycopyrrolate (Glycopyrrolate 0.2 Mg/Ml Sdv) Confirm Administered Dose 0.2 mg .ROUTE .STK-MED ONE Stop: 04/12/21 20:45 Hydromorphone HCl (Hydromorphone 1 Mg/Ml Syringe) 1 mg IVPUSH ONETIME ONE Stop: 04/12/21 18:16 Last Admin: 04/12/21 18:46 Dose: 1 mg Documented by: Hydromorphone HCl (Hydromorphone 1 Mg/Ml Syringe) 0.5 mg IVPUSH Q1H PRN PRN Reason: Pain Last Admin: 04/13/21 04:56 Dose: 0.5 mg Documented by: Hydromorphone HCl (Hydromorphone 2 Mg/Ml Syringe) Confirm Administered Dose 2 mg .ROUTE .STK-MED ONE Stop: 04/12/21 21:42 Hydromorphone HCl (Hydromorphone 2 Mg/Ml Syringe) Confirm Administered Dose 2 mg .ROUTE .STK-MED ONE Stop: 04/12/21 22:11 Sodium Chloride (Normal Saline) 1,000 mls @ 999 mls/hr IV STAT ONE Stop: 04/12/21 17:56 Last Admin: 04/12/21 17:08 Dose: 999 mls/hr Documented by: Piperacillin Sod/Tazobactam (Sod 3.375 gm/ Sodium Chloride) 50 mls @ 100 mls/hr IV ONETIME ONE Stop: 04/12/21 20:06 Last Admin: 04/13/21 01:44 Dose: Not Given Documented by: Lactated Ringer's (Ringers, Lactated) 1,000 mls @ 125 mls/hr IV ASDIRECTED [facility] Last Infusion: 04/13/21 13:00 Dose: Infused Documented by: Acetaminophen 1,000 mg/ Premix 100 mls @ 400 mls/hr IV Q6H PRN PRN Reason: Pain Last Admin: 04/13/21 00:13 Dose: 400 mls/hr Documented by: Sodium Chloride (Normal Saline) Confirm Administered Dose 20 mls @ as directed .ROUTE .STK-MED ONE Stop: 04/12/21 23:34 Piperacillin Sod/Tazobactam (Sod 3.375 gm/ Sodium Chloride) 50 mls @ 100 mls/hr IV Q6H RICARDO Last Admin: 04/13/21 15:28 Dose: Not Given Documented by: Iopamidol (Iopamidol 755 Mg/Ml 500 Ml Multipack Bottle) 100 ml IVPUSH ONETIME STA Stop: 04/12/21 18:25 Last Admin: 04/12/21 18:25 Dose: 100 ml Documented by: Ketorolac Tromethamine (Ketorolac 30 Mg/Ml Sdv) Confirm Administered Dose 30 mg .ROUTE .STK-MED ONE Stop: 04/12/21 20:45 Lidocaine (Lidocaine 2% 5 Ml Sdv) Confirm Administered Dose 5 ml .ROUTE .STK-MED ONE Stop: 04/12/21 20:45 Midazolam HCl (Midazolam 1 Mg/Ml 2 Ml Sdv) Confirm Administered Dose 2 mg .ROUTE .STK-MED ONE Stop: 04/12/21 20:43 Morphine Sulfate (Morphine 4 Mg/Ml Syringe) 4 mg IVPUSH ONETIME ONE Stop: 04/12/21 16:57 Last Admin: 04/12/21 17:08 Dose: 4 mg Documented by: Octyl Cyanoacrylate (Octyl 2-Cyanoacrylate 1 Tube) Confirm Administered Dose 0 applic .ROUTE .STK-MED ONE Stop: 04/12/21 20:52 Ondansetron HCl (Ondansetron 4 Mg/2 Ml Sdv) Confirm Administered Dose 4 mg .ROUTE .STK-MED ONE Stop: 04/12/21 20:45 Ondansetron HCl (Ondansetron 4 Mg/2 Ml Sdv) 4 mg IVPUSH Q6H PRN PRN Reason: Nausea/Vomiting Oxycodone/Acetaminophen (Acetaminophen/Oxycodone 325-5 Mg Tab) 2 tab PO Q4H PRN PRN Reason: Pain (moderate 4-6) Last Admin: 04/13/21 12:10 Dose: 2 tab Documented by: Polyethylene Glycol (Polyethylene Glycol 3350 Powder 17 Gm Packet) 17 gm PO DAILY PRN PRN Reason: Constipation Propofol (Propofol 200 Mg/20 Ml Sdv) Confirm Administered Dose 200 mg .ROUTE .STK-MED ONE Stop: 04/12/21 20:43 Rocuronium [place] (Rocuronium [place] 50 Mg/5 Ml Syringe) Confirm Administered Dose 50 mg .ROUTE .STK-MED ONE Stop: 04/12/21 20:45 Rocuronium [place] (Rocuronium [place] 50 Mg/5 Ml Syringe) Confirm Administered Dose 50 mg .ROUTE .STK-MED ONE Stop: 04/12/21 21:43 Sodium Chloride (Sodium Chloride 0.9% 10 Ml Syringe) 10 ml FLUSH ASDIRECTED PRN PRN Reason: Keep Vein Open Last Admin: 04/12/21 17:08 Dose: 10 ml Documented by: Sodium Chloride (Sodium Chloride 0.9% 2.5 Ml Syringe) 2.5 ml FLUSH ASDIRECTED PRN PRN Reason: Keep Vein Open Last Admin: 04/12/21 17:08 Dose: 2.5 ml Documented by: Sodium Chloride (Sodium Chloride 0.9% 10 Ml Syringe) 10 ml FLUSH ASDIRECTED PRN PRN Reason: Keep Vein Open Sodium Chloride (Sodium Chloride 0.9% 2.5 Ml Syringe) 2.5 ml FLUSH ASDIRECTED PRN PRN Reason: Keep Vein Open Sodium Chloride (Sodium Chloride 0.9% 10 Ml Sdv) 10 ml IV ASDIRECTED PRN PRN Reason: IV Use Sugammadex Sodium (Sugammadex Sodium 200 Mg/2 Ml Vial) Confirm Administered Dose 200 mg .ROUTE .STK-MED ONE Stop: 04/12/21 20:45 Sugammadex Sodium (Sugammadex Sodium 200 Mg/2 Ml Vial) Confirm Administered Dose 200 mg .ROUTE .STK-MED ONE Stop: 04/12/21 22:45 - Exam Wound/Incisions: Healing Well, Dressing Dry and Intact General: Alert, Oriented HEENT: Pupils Equal, Pupils Reactive Lungs: Normal Respiratory Effort Cardiovascular: Regular Rate GI/Abdominal Exam: Soft, Non-Tender, No Distention Sepsis Event Note - Evaluation Sepsis Screening Result: No Definite Risk - Focused Exam Vital Signs: Vital Signs Temp Pulse Pulse Resp BP BP Pulse Ox 04/13/21 12:00 36.3 C 78 17 105/72 94 L 04/13/21 07:04 36.9 C 89 16 118/73 97 04/13/21 04:40 36.9 C 85 16 134/75 95 - Problem List & Annotations (1) Intra-abdominal adhesions SNOMED Code(s): 834808381 Code(s): K66.0 - PERITONEAL ADHESIONS (POSTPROCEDURAL) (POSTINFECTION) Status: Acute (2) Appendicitis SNOMED Code(s): 31420616 Code(s): K37 - UNSPECIFIED APPENDICITIS Status: Acute Qualifiers: Appendicitis type: acute appendicitis Acute appendicitis type: with localized peritonitis Appendicitis gangrene presence: without gangrene Appendicitis perforation presence: without perforation Appendicitis abscess p resence: without abscess Qualified Code(s): K35.30 - Acute appendicitis with localized peritonitis, without perforation or gangrene (3) Crohn disease SNOMED Code(s): 90065343 Code(s): K50.90 - CROHN'S DISEASE, UNSPECIFIED, WITHOUT COMPLICATIONS Status: Acute - Problem List Review Problem List Initiated/Reviewed/Updated: Yes - My Orders Last 24 Hours: Active Orders 24 hr Category Date Time Status Patient Status [ADT] Routine ADT 04/12/21 19:48 Active Peripheral IV Insertion Adult [OM.PC] Routine Oth 04/12/21 19:47 Ordered Saline Lock Insert [OM.PC] Stat Oth 04/12/21 16:56 Ordered Sequential Compression Device [OM.PC] Routine Oth 04/12/21 19:47 Ordered Resuscitation Status Routine Resus Stat 04/12/21 19:47 Ordered - Assessment Assessment (Free Text/Narrative):: The patient is doing well pod #1. Will transition to oral antibiotics given his history of crohn's disease. Will treat for a total of 5 days with cipro and flagyl. Follow up in clinic in 2 weeks.
--- NOTE | 2021-04-13 18:08 | OR ---
SURGEON: VERONICA DUDLEY MD DATE OF PROCEDURE: 04/12/2021 PREOPERATIVE DIAGNOSIS: Acute appendicitis. POSTOPERATIVE DIAGNOSIS: Acute appendicitis. PROCEDURE PERFORMED: Laparoscopic appendectomy. PRIMARY SURGEON: Veronica Dudley MD ANESTHESIA: General endotracheal anesthesia. FLUIDS: 2400 mL crystalloid. ESTIMATED BLOOD LOSS: 10 mL. URINE OUTPUT: 100 mL. FINDINGS: Retrocecal appendix with dense adhesions to the retroperitoneum and overlying bowel. No evidence of perforation. No evidence of active Crohn disease. COMPLICATIONS: None. INDICATIONS: The patient is a 40-year-old male who presented to the emergency room with a several-hour history of generalized abdominal pain, chills, and nausea and vomiting. He has a history of Crohn disease, but has not had a flare in many years. 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 Lab work revealed a leukocytosis with a left shift. CT scan of the abdomen and pelvis showed an enlarged and dilated appendix with some minimal stranding consistent with acute appendicitis. There was no evidence of inflammation of the terminal ileum or cecum. The patient and I discussed these findings. I feel he has acute appendicitis and after discussing his options, he would like to proceed with an appendectomy. I will attempt this laparoscopically, but convert to open should I be unable to perform it safely. The patient and I discussed the procedure, expected perioperative course, as well as the risks. He verbalized understanding and wishes to proceed. PROCEDURE IN DETAIL: The patient was brought in to the OR and placed on the OR table in supine position. A time-out was completed verifying the patient's name, age, date of , allergies, and procedure to be performed. General endotracheal anesthesia was induced. The left arm was tucked to the patient's side and a Lowe catheter placed. The abdomen was prepped and draped in usual standard fashion. I anesthetized an area two fingerbreadths below the left subcostal margin in the midclavicular line with 0.5% Marcaine plain. An 11-blade was used to make an incision over this area. A 5 mm optical trocar was used to gain entry into the abdomen in the left upper quadrant under direct visualization. All layers of the abdominal wall were visualized upon entry. The abdomen was insufflated and a 5 mm, 30-degree scope was inserted. I inspected the area underneath my initial trocar placement. No damage to surrounding structures was noted. A 5 mm trocar was placed just left and lateral to the umbilicus and a 12 mm trocar placed along the lower abdominal midline. The patient was placed into Trendelenburg position and airplaned slightly to the left. I identified the ascending colon and followed it down to the cecum. The terminal ileum was identified. On the CT scan preoperatively, the patient's appendix appeared to be retrocecal with the tip lying medial and underneath the terminal ileum. I gently grasped the terminal ileum and elevated it. I could just see the tip of the appendix underneath this. However, the terminal ileum had adhesions to the posterior structures. These were taken down using a combination of blunt dissection with a [place] dissector, a suction device, a Kittner, as well as a laparoscopic scissor. Once these were taken down, I was able to see the tip of the appendix. This was grasped and elevated superiorly. The body of the appendix was densely adhered to the retroperitoneum. Using meticulous dissection, I dissected the appendix free from the surrounding adhesions. This took over an hour given how dense the adhesions were. Eventually, I was able to mobilize enough of the body of the gallbladder that I could identify the appendiceal mesentery. Using a Harmonic scalpel device, I took down the appendiceal mesentery from distal to proximal, taking great care to avoid damage to surrounding structures. As I got to the proximal appendix, I noted a structure that appeared to be the appendiceal artery. I doubly clipped and ligated this. There was another piece of tissue that I was unsure if this was a branch or part of the appendiceal artery. I doubly clipped and ligated that as well. Pictures were taken throughout the procedure to show the amount of adhesions and the progression of my dissection. Once the appendix was completely dissected free from the surrounding structures, a photograph was taken. An endoscopic stapling device was brought in through the lower midline 12 mm port site. The cecum had very little mobilization to it, given its previous inflammation and adhesions. Due to this, I was unable to get the stapler device close enough to the base of the appendix for me to feel safe transecting across this area. Instead, I converted my 5 mm left of the umbilicus port to a 12 mm trocar. At this angle, I was able to get the stapling device close enough to the base of the appendix to feel safe transecting it. I fired a 35 mm blue load of vita across the area. The appendix was then placed in an EndoCatch bag and removed through the lower midline port site. I inspected my operative field. A photograph was taken. The area appeared to be hemostatic. I irrigated the area with normal saline which was suctioned out. I then closed my lower midline 12 mm port site fascia with interrupted 0 Vicryl suture using a Yao-Pb device. I then closed the 12 mm port site just left and lateral to the umbilicus in a similar manner. The 5 mm trocar was then removed as well, and the abdomen allowed to desufflate. The subcutaneous fat layers at the 12 mm trocar sites were closed with interrupted 3-0 Vicryl sutures, and the skin was closed with running 4-0 Monocryl stitches. The 5 mm trocar site was closed with an interrupted 4-0 Monocryl suture. Steri-Strips and Tegaderms were applied. The patient tolerated the procedure well and was transferred to the PACU in stable condition. TAMARA GARCIA /[id number] MONICA
== END 2021-04-13 15:15 | disposition home or self-care (01) ==
LOC: MW.ED 16:15 → MW.SDS 19:54 → MW.MS 20:59 → MW.SDS 04-13 15:15
PROVIDERS: ATTEND Surgery
DX: K35.80 Unspecified acute appendicitis (principal); Z79.899 Other long term (current) drug therapy; Z01.812 Encounter for preprocedural laboratory examination; Z20.822 Contact with and (suspected) exposure to COVID-19
CPT/HCPCS: 00840; 36415; 74177; 74177-26; 80053; 81001; 85025; 88304; 96374; 96375; 99284; 99285-25; A9270-GY; J0131; J0694; J1170; J1885; J2250; J2270; J2405; J2543; J2704; J3010; J3490; J7030; J7120; Q9967; U0002